=== PATIENT | male | born 2000 | race Caucasian/White ===

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

== ENCOUNTER → 2023-09-02 | Outpatient (CLI) | payer MEDICAID, SELFPAY ==
[2023-09-02 12:19] LABS: Absolute Neutrophil Count 4.2 X10^3/uL (2.0-7.7); Basophil# 0.06 X10^3/uL; Basophil% 0.9 % (0-1); Eosinophil# 0.23 X10^3/uL; Eosinophils% 3.5 % (0-5); Hematocrit 45.4 % (40-54); Hemoglobin 14.3 g/dL (13.0-16.5); Lymphocyte % 25.8 % (19-41); Mean Corp Hgb Conc 31.5 g/dL (32-36); Mean Corpuscular Hgb 25.8 pg (27.0-32.0); Mean Corpuscular Volume 81.9 fL (80-94); Mean Platelet Vol. 9.7 fl (6.2-12.0); Monocyte# 0.43 X10^3/uL; Monocyte% 6.5 % (0-10); NRBC Flagged by Analyzer 0 % (0-5); Neutrophil # 4.17 X10^3/uL (2.7-7.7); Neutrophil % 63.1 % (47-70); Platelet Count 274 K/mm3 (150-450); RBC Distribution Width CV 12.9 % (11.6-14.6); RBC Distribution Width SD 38.7 fl (35.1-43.9); Red Blood Count 5.54 M/mm3 (4.6-6.2); White Blood Count 6.6 K/mm3 (4.4-11.0)
[2023-09-02 12:42] LABS: ALB/GLOB Ratio 0.9 RATIO (0.9-2.4); AST(SGOT) 19 U/L (15-37); Alanine Aminotransfer ALT/SGPT 33 U/L (16-61); Albumin, Serum 3.7 g/dL (3.2-5.0); Alkaline Phosphatase 69 U/L (45-117); Anion Gap 4 (5-15); BUN 9 mg/dL (7-18); BUN/Creat Ratio 11.3 RATIO (10-20); Calcium,Total 9.1 mg/dL (8.5-10.1); Chloride 108 mmol/L (98-107); Cholesterol 109 mg/dL (200); EST Glomerular Filtration Rate 129 mL/min (>60); Est Glom Filt Rate - Afr Amer 156 mL/min (>60); Globulin 4.1 g/dL (2.2-4.2); Glucose 97 mg/dL (74-106); High Density Lipoprotein 45 mg/dL; Potassium 3.9 mmol/L (3.5-5.1); Protein, Total 7.8 g/dL (6.4-8.2); Sodium Level 140 mmol/L (136-145); Triglycerides 43 mg/dL; Very Low Density Lipoprotein 9 mg/dL (5-40)
== END | disposition home or self-care (01) ==
LOC: MFPLAB 10:39
PROVIDERS: PCP Pediatrics; Visit Provider Family Medicine
DX: Z13.1 Encounter for screening for diabetes mellitus (principal); E66.9 Obesity, unspecified
CPT/HCPCS: 36415; 80053; 80061; 85025

== ENCOUNTER → 2024-05-31 | Outpatient (CLI) | payer MEDICAID, SELFPAY ==
--- NOTE | 2024-05-31 10:30 | RAD_ITS ---
INDICATION: pain left hip EXAMINATION/TECHNIQUE: X-RAY - XR Hips Bilateral with Pelvis when performed; Min 5 Views COMPARISON: FINDINGS: PELVIC BONES: No displaced fracture, destructive or sclerotic lesions. Note that overlapping bowel shadows may however obscure fine detail. Screw through the right sacroiliac joint consistent with prior fixation. No widening of the pubic symphysis. HIPS: The articular structures are unremarkable. No displaced fracture seen in this frontal view. SOFT TISSUES: No soft tissue swelling or gas. RAD/Hips B/L min 2 views w/ Pelvis IMPRESSION: No evidence of displaced pelvic or hip fracture. Electronically Signed: Rubin Caldera MD at 11:16 EDT ,
== END | disposition home or self-care (01) ==
PROVIDERS: PCP Family Medicine; Referring Provider Family Medicine; Visit Provider Family Medicine
DX: M25.559 Pain in unspecified hip (principal)
CPT/HCPCS: 73521

== ENCOUNTER → 2025-01-08 | Outpatient (CLI) | payer MEDICAID, SELFPAY ==
--- NOTE | 2025-01-08 12:55 | RAD_ITS ---
PROCEDURE: AP PELVIS AND RIGHT HIP, 2-3 VIEWS REASON FOR EXAM: RIGHT HIP PAIN. TECHNIQUE: AP pelvis and two views of the right hip. COMPARISON: AP pelvis and hips dated 05/31/2024. FINDINGS: No fracture, dislocations, or subluxations. An orthopedic screw is again noted extending through the right iliac wing and sacrum. Compression plate fixing an old fracture of the left hip. No acute or chronic abnormalities demonstrated in the right hip. Soft tissues are unremarkable. RAD/HIP, UNI W/ Pelvis 2-3 Views IMPRESSION: No acute osseous abnormalities are demonstrated. Postoperative findings as detailed above. Reading Location: [facility]
== END | disposition home or self-care (01) ==
PROVIDERS: PCP Family Medicine; Referring Provider Family Medicine; Visit Provider Family Medicine
DX: M25.551 Pain in right hip (principal)
CPT/HCPCS: 73502

== ENCOUNTER 2025-02-15 08:10 | Outpatient (RCR) | payer MEDICAID, SELFPAY ==
[2025-02-15 08:22] VITALS: BP 158/81; PULSE 94; RESP 16; TEMP 36.3; BMI 50.4
--- NOTE | 2025-02-15 10:25 | PCM.WC.HP ---
History of Present Illness Date of Service: 02/15/25 Chief Complaint: cellulitis below the knee amputation site History of Wound: Isaias is a 24 yo gentleman who presents to the wound healing center today regarding drainage at the stump of his left BKA amputation site. He was referred by Dr. Du. He underwent BKA of his left leg 4 years ago due to an injury to his lower left leg. He reports that after initial surgery for BKA he developed infection and had second surgery to revise the stump approx. 1 month after initial amputation but has not had any infections since that time. For the last 2-4 months, he has noted increased pain, burning at the stump site and in the last month he has noted clear drainage which he thought was sweat and about 2 weeks ago he noticed bloody drainage and odor. He saw his PCP on 02/08/25 and was prescribed Clindamycin and referred to wound center for treatment. He did not start antibiotic until Tuesday but has noticed there is no further drainage today since he has been on the antibiotic. He does note that overnight he does seem to develop swelling to his stump area and after being in his prosthesis the swelling has decreased. He has an appointment on Tuesday with [employer] regarding liners for his prosthesis. He did have a compression stocking that he used postoperatively but they no longer provide compression. He is otherwise healthy and not on chronic medications. He denies any systemic symptoms of infection such as fever, chills, malaise. [facility]LY [facility] Medical History Abrasion Home Medications ?Medication ?Instructions ?Recorded ?Last Taken ?Type No Known/Unobtainable [No Known 03/02/14 Unknown History Home Medications] Allergy/AdvReac Type Severity Reaction Status Date / Time bee venom protein (honey bee) AdvReac Intermediate Swelling Verified 02/21/24 10:22 Family History no significant family his no significant family history Surgical History (Updated 02/15/25 @ 15:[address] Sofya Redmond DO) Status post below-knee amputation of left lower extremity Social History Smoking Status: Never smoker ROS Constitutional Constitutional: Denies chills, fatigue or fever(s) Eyes Eyes: Denies blurry vision, change in vision or loss of vision ENT HEENT: Denies dysphagia, hearing loss or sore throat Cardiovascular Cardiovascular: Denies chest pain, edema or palpitations Respiratory/Chest Respiratory/Chest: Denies dry cough, dyspnea, dyspnea on exertion, productive cough or wheezing Gastrointestinal Gastrointestinal: Denies diarrhea, nausea or vomiting Genitourinary Genitourinary: Denies dysuria or polyuria Musculoskeletal Musculoskeletal: Denies arthralgias, joint stiffness or muscle weakness Integumentary Integumentary: Reports erythema and wounds Neurologic Neurologic: Denies dizziness, memory loss or weakness Psychiatric Psychiatric: Denies homicidal ideation or suicidal ideation Endocrine Endocrinology: Denies polydipsia, polyphagia or polyuria Hematologic/Lymphatic Hematologic/Lymphatic: Denies easy bleeding or easy bruising Allergic/Immunologic Allergic/Immunologic: Denies throat swelling, tongue swelling or urticaria Vital Signs Vital Signs Vital Signs: 02/15/25 08:22 Temperature 97.3 F L Temperature Source Temporal Pulse Rate 94 Respiratory Rate 16 Blood Pressure 158/81 H Blood Pressure Mean 106 Blood Pressure Source Monitor Blood Pressure Position Semi-Fowlers Blood Pressure Location Left Arm Oxygen Delivery Method Room Air Weight Weight: 178.262 kg Body Mass Index (BMI) 50.4 Physical Exam Const alert, oriented x3 and no apparent distress General Appearance: cooperative and comfortable HEENT normocephalic and head/scalp atraumatic Resp normal respiratory effort Effort and Inspection: able to speak in complete sentences Cardio regular rate and regular rhythm Skin Wounds: wounds noted Wound Narrative: as in clinical panel - left BKA amputation site with nodular appearance associated with chronic edema without open ulcer Psych mental status grossly normal, thought process normal, cooperative and affect normal Debridement Note Debridement Note Wound debrided: left BKA amputation stump Laterality: Left Post-Debridement Measurements and Additional Note: Post-Debridement Measurements/Treatment - Nurse 1 - General Ulcer Assessment Start: 02/15/25 08:22 Freq: Status: Active Protocol: DARRIUS Activity Type Activity Date Activity User E-sign Co-sign Detail Recorded Client Recorded Date Recorded By Document 02/15/25 08:22 TIFF [id number] 02/15/25 08:31 KW 02/15/25 08:22 - Today's Visit Information Type of service Initial Visit Arrival Mode Ambulatory Patient Identification Verified (Name & Yes ) Height and Weight Height 6 ft 2 in Weight 178.262 kg Weight in Pounds 393.0 lbs Weight Measurement Method Estimated by Patient Body Mass Index (BMI) 50.4 BMI Classification Obese Vital Signs Temperature (97.8 F-99.1 F) 97.3 F L Temperature Source Temporal Pulse Rate (60-100) 94 Pulse Location Monitor Respiratory Rate (12-18) 16 Respiratory rate source Observation Oxygen Delivery Method Room Air Blood Pressure (90/60-120/80) 158/81 H Blood Pressure Mean 106 Source Monitor Position Semi-Fowlers Blood Pressure Location Left Arm History Since Last Visit- (Skip if this is Patient's initial visit) Left Footwear Regular Shoe Right Footwear Regular Shoe Pain Scale: 0-10 Numeric Is Patient Pain Free? Yes Communication Assessment Preferred language [employer] Reset Required No Able to Read Yes Able to Write Yes Communication Tools None Caregiver Communication Skills No Impairment Impairment Right Hearing Abillity Normal Left Hearing Abillity Normal Visual Assistive Devices None WC - Nurse 1 - General Ulcer Measurement Start: 02/15/25 08:22 Freq: Status: Active Protocol: Activity Type Activity Date Activity User E-sign Co-sign Detail Recorded Client Recorded Date Recorded By Document 02/15/25 08:22 [id number] 02/15/25 08:31 KW 02/15/25 08:22 Wound Center Nurse 1 #1 LT STUMP -Current Size (cm) - Length 0.1 -Current Size (cm) - Width 0.1 -Current Size (cm) - Depth 0 -Total Square Cm 0.01 -Date of Last Picture (Recall this 02/15/25 field) -Exudate Amt Small -Exudate Type Serosanguineous -Wound Margin Distinct, Outline Attached -Granulation Amt Large (67-100%) -Granulation Quality Red -Texture (Luz Marina-wound Skin Appearance) Assessed -Moisture (Luz Marina-wound Skin Appearance) Assessed -Color (Luz Marina-wound Skin Appearance) Assessed, Erythema -Temperature (Luz Marina-wound Skin No Abnormality Appearance) (Pt Warm) -Tenderness on Palpation (Luz Mraina-wound No Skin Appearance) -Ulcer Cleansing Rinsed/ Irrigated with Saline -Foul Odor after Cleansing No -Anesthetic Used 5% Lidocaine Gel WC - Nurse 2 - General Ulcer CM Notes Start: 02/15/25 08:22 Freq: Status: Active Protocol: Activity Type Activity Date Activity User E-sign Co-sign Detail Recorded Client Recorded Date Recorded By Document 02/15/25 09:02 DS [id number] 02/15/25 09:03 DS 02/15/25 09:02 Wound Center Nurse 2 -Time 09:02 -Correct Patient Yes -Correct Side, Site, Position Yes -Procedure Performed No -Wound/Ulcer Outcome Amputation -Wound Comment(s) NO OPEN AREA Pain Scale: 0-10 Numeric Is Patient Pain Free? Yes WC - Nurse 3 - General Ulcer D/C NN Start: 02/15/25 08:22 Freq: Status: Active Protocol: Activity Type Activity Date Activity User E-sign Co-sign Detail Recorded Client Recorded Date Recorded By Document 02/15/25 09:16 RB [id number] 02/15/25 09:18 RB 02/15/25 09:16 Wound Care Center Nurse 3 LLE -Tubular Bandage Single Layer -Size of Tubigrip Used Size F -Size F ($) 1 Treatment Response Procedure Tolerated Well Pain Scale: 0-10 Numeric Is Patient Pain Free? Yes WC - Visit Discharge Discharge Condition Stable Ambulatory Status Ambulatory Transportation Private Auto Medication Reconcilliation completed & No provided to patient/care provider Clinical Summary of Care Provided Yes Notes: LLE PROSTETIC Assessment/Plan Assessment/Plan (1) Status post below-knee amputation of left lower extremity: CODE(S): Z89.512 - Acquired absence of left leg below knee (2) Complication of amputation stump of left lower extremity: CODE(S): T87.9 - Unspecified complications of amputation stump (3) Body mass index (BMI) of 40.0 to 44.9 in adult: CODE(S): Z68.41 - Body mass index [BMI] 40.0-44.9, adult (4) Lymphedema: CODE(S): I89.0 - Lymphedema, not elsewhere classified (5) Cellulitis and abscess of left lower extremity: CODE(S): L03.116 - Cellulitis of left lower limb; L02.416 - Cutaneous abscess of left lower limb (6) Complete traumatic amputation at level between knee and ankle, left lower leg, sequela: CODE(S): S88.112S - Complete traumatic amputation at level between knee and ankle, left lower leg, sequela PLAN: Plan Left BKA stump evaluated today revealing chronic skin changes of lymphedema and possibly pressure with nodular appearance and mild cellulitis without any visible ulceration. At home wound-care instructions: The patient will wash with antibacterial soap and water and then will apply gauze or ABD to stump site. Keep dressing clean and dry. Will try to offload stump site as much as possible. Will apply tubigrip compression today to the stump site and have him use this especially at night when he states that he experiences swelling. Also, encouraged him to discuss this at his appointment with [employer] as they may have suggestions for liners or sleeves to prevent edema. There is a possibility that if he develops ulcers or continues to have chronic cellulitis that a revision of the stump site may be necessary. Off-loading: The patient was instructed to avoid pressure and friction on the affected areas. Reposition every 2 hours at minimum. Avoid prolonged standing and/or dangling of legs. When seated, feet should be elevated at chest level. Frequent ambulation is encouraged. Diet: Patient encouraged to increase protein intake while taking caution to avoid high carbohydrate and/or sugar intake. Labs/cultures/imaging: None. he will complete antibiotic treatment. Follow-up: Return in 1 week for wound care follow up. Return sooner or report to the emergency room should symptoms worsen, or new symptoms arise. Note: [employer] speech recognition glove machine operator software was used to create portions of this document. Sound-alike and misspelled words, as well as other glove machine operator errors may be contained in the documentation.
--- NOTE | 2025-02-15 12:20 | WC ---
PHOTO 02/15/25 LEFT STUMP
== END 2025-02-18 23:59 | disposition home or self-care (01) ==
LOC: WC 08:10
PROVIDERS: PCP Family Medicine; Referring Provider Family Medicine; Visit Provider Family Medicine
DX: T87.44 Infection of amputation stump, left lower extremity (principal); Z89.512 Acquired absence of left leg below knee; Z68.41 Body mass index [BMI] 40.0-44.9, adult; L02.416 Cutaneous abscess of left lower limb; L03.116 Cellulitis of left lower limb; S88.112S Complete traumatic amputation at level between knee and ankle, left lower leg, sequela; X58.XXXS Exposure to other specified factors, sequela; I89.0 Lymphedema, not elsewhere classified; Z79.899 Other long term (current) drug therapy
CPT/HCPCS: 99213; G0463

== ENCOUNTER 2025-03-08 08:30 | Outpatient (RCR) | payer MEDICAID, SELFPAY ==
[2025-02-19 01:00] VITALS: BP 158/81; PULSE 94; RESP 16; TEMP 36.3; BMI 50.4
[2025-02-22 08:22] VITALS: BP 138/72; PULSE 73; RESP 18; TEMP 36.1; BMI 50.4
--- NOTE | 2025-02-22 12:58 | PN.PCM_ITS ---
History of Present Illness Date of Service: 02/22/25 Chief Complaint: cellulitis below the knee amputation site History of Wound: Isaias is a 24 yo gentleman who presents to the wound healing center today regarding drainage at the stump of his left BKA amputation site. He was referred by Dr. Du. He underwent BKA of his left leg 4 years ago due to an injury to his lower left leg. He reports that after initial surgery for BKA he developed infection and had second surgery to revise the stump approx. 1 month after initial amputation but has not had any infections since that time. For the last 2-4 months, he has noted increased pain, burning at the stump site and in the last month he has noted clear drainage which he thought was sweat and about 2 weeks ago he noticed bloody drainage and odor. He saw his PCP on 02/08/25 and was prescribed Clindamycin and referred to wound center for treatment. He did not start antibiotic until Tuesday but has noticed there is no further drainage today since he has been on the antibiotic. He does note that overnight he does seem to develop swelling to his stump area and after being in his prosthesis the swelling has decreased. He has an appointment on Tuesday with [employer] regarding liners for his prosthesis. He did have a compression stocking that he used postoperatively but they no longer provide compression. He is otherwise healthy and not on chronic medications. He denies any systemic symptoms of infection such as fever, chills, malaise. Subjective Subjective Isaias returns to the wound center today for evaluation and treatment of drainage at left BKA stump site. He completed Clindamycin and a few days later he began to have drainage, blood at his stump site again. The tubigrip compression was not helpful and irritated his skin but the heat transfer technician that he saw yvonne Castro is going to add a cushion at the site of where his pin is on his prosthesis to offload the stump site better. He denies increased erythema, fever or chills. Drainage is moderate to heavy. Objective Data Objective Data Vital Signs: Vital Signs Temp Pulse Resp BP 97 F L 73 18 138/72 H 02/22/25 08:22 02/22/25 08:22 02/22/25 08:22 02/22/25 08:22 Weight: 178.262 kg Body Mass Index (BMI) 50.4 Physical Exam Const alert, oriented x3 and no apparent distress General Appearance: cooperative and comfortable HEENT normocephalic and head/scalp atraumatic Resp normal respiratory effort Effort and Inspection: able to speak in complete sentences Cardio regular rate and regular rhythm Skin Wounds: wounds noted Wound Narrative: as in clinical panel - left BKA amputation site with nodular appearance associated with chronic edema without open ulcer Psych mental status grossly normal, thought process normal, cooperative and affect normal Debridement Note Debridement Note Wound debrided: left BKA stump Laterality: Left No debridement was completed: No debridement was completed today (no ulcer present) Post-Debridement Measurements and Additional Note: Post-Debridement Measurements/Treatment CHERYL - Nurse 1 - General Ulcer Assessment Start: 02/22/25 08:22 Freq: Status: Active Protocol: DARRIUS Activity Type Activity Date Activity User E-sign Co-sign Detail Recorded Client Recorded Date Recorded By Document 02/22/25 08:22 TIFF [id number] 02/22/25 08:26 TIFF 02/22/25 08:22 WC - Today's Visit Information Type of service Follow-up Visit (Physician/GRADER OPERATOR ) Arrival Mode Ambulatory Patient Identification Verified (Name & Yes ) Height and Weight Body Mass Index (BMI) 50.4 BMI Classification Obese Vital Signs Temperature (97.8 F-99.1 F) 97 F L Temperature Source Temporal Pulse Rate (60-100) 73 Pulse Location Monitor Respiratory Rate (12-18) 18 Respiratory rate source Observation Blood Pressure (90/60-120/80) 138/72 H Blood Pressure Mean (mm Hg) 94 Source Monitor Position Semi-Fowlers Blood Pressure Location Left Arm History Since Last Visit- (Skip if this is Patient's initial visit) Have you changed medications since your No last visit? Any new allergies or adverse reactions No Had a fall/change in ADL's that may No increase risk of falls Signs or symptoms of abuse and/or No neglect since last visit Have you been in the hospital since your No last visit? Has dressing in place as prescribed Yes Has compression in place as prescribed N/A Has offloadiing in place as prescribed N/A Experienced any changes in pain level or No management Left Footwear No Footwear Right Footwear Regular Shoe Pain Scale: 0-10 Numeric Is Patient Pain Free? Yes CHERYL - Nurse 1 - General Ulcer Measurement Start: 02/22/25 08:22 Freq: Status: Active Protocol: Activity Type Activity Date Activity User E-sign Co-sign Detail Recorded Client Recorded Date Recorded By Document 02/22/25 08:22 KW [id number] 02/22/25 08:26 KW 02/22/25 08:22 Wound Center Nurse 1 #1 LT STUMP -Combined with other wound No -Current Size (cm) - Length 0.1 -Current Size (cm) - Width 0.1 -Current Size (cm) - Depth 0.1 -Total Square Cm 0.01 -Photo Taken Yes -Tunneling No -Undermining/Tunneling No -Circular Undermining No -Exudate Amt None Present -Wound Margin Distinct, Outline Attached -Granulation Amt Large (67-100%) -Granulation Quality Taylor -Slough/Fibrin No -Structure Exposed N/A -Texture (Luz Marina-wound Skin Appearance) Excoriation -Moisture (Luz Marina-wound Skin Appearance) Assessed -Color (Luz Marina-wound Skin Appearance) Erythema -Temperature (Luz Marina-wound Skin No Abnormality Appearance) (Pt Warm) -Tenderness on Palpation (Luz Marina-wound No Skin Appearance) -Ulcer Cleansing Wound Cleanser -Foul Odor after Cleansing No WC - Nurse 2 - General Ulcer CM Notes Start: 02/22/25 08:22 Freq: Status: Active Protocol: Activity Type Activity Date Activity User E-sign Co-sign Detail Recorded Client Recorded Date Recorded By Document 02/22/25 08:40 DS [id number] 02/22/25 08:44 DS 02/22/25 08:40 Wound Center Nurse 2 -Time 08:40 -Correct Patient Yes -Correct Side, Site, Position Yes -Procedure Performed No Pain Scale: 0-10 Numeric Is Patient Pain Free? Yes - Nurse 3 - General Ulcer D/C NN Start: 02/22/25 08:22 Freq: Status: Active Protocol: Activity Type Activity Date Activity User E-sign Co-sign Detail Recorded Client Recorded Date Recorded By Document 02/22/25 08:54 KW [id number] 02/22/25 08:54 02/22/25 08:54 Wound Care Center Nurse 3 #1 LT STUMP -Primary Dressing Covered/Secured with Dry Gauze Pain Scale: 0-10 Numeric Is Patient Pain Free? Yes WC - Visit Discharge Discharge Condition Stable Ambulatory Status Ambulatory Transportation Private Auto Medication Reconcilliation completed & No provided to patient/care provider Clinical Summary of Care Provided Yes Assessment/Plan Assessment/Plan (1) Status post below-knee amputation of left lower extremity: CODE(S): Z89.512 - Acquired absence of left leg below knee (2) Complication of amputation stump of left lower extremity: CODE(S): T87.9 - Unspecified complications of amputation stump (3) Body mass index (BMI) of 40.0 to 44.9 in adult: CODE(S): Z68.41 - Body mass index [BMI] 40.0-44.9, adult (4) Lymphedema: CODE(S): I89.0 - Lymphedema, not elsewhere classified (5) Cellulitis and abscess of left lower extremity: CODE(S): L03.116 - Cellulitis of left lower limb; L02.416 - Cutaneous abscess of left lower limb (6) Complete traumatic amputation at level between knee and ankle, left lower leg, sequela: CODE(S): S88.112S - Complete traumatic amputation at level between knee and ankle, left lower leg, sequela PLAN: Plan Left BKA stump evaluated today revealing chronic skin changes of lymphedema and possibly pressure with nodular appearance and mild cellulitis without any visible ulceration. At home wound-care instructions: The patient will wash with antibacterial soap and water and then will apply ABD to stump site daily. Keep dressing clean and dry. Will try to offload stump site as much as possible. There is a possibility that if he develops ulcers or continues to have chronic cellulitis that a revision of the stump site may be necessary. Off-loading: The patient was instructed to avoid pressure and friction on the affected areas. Reposition every 2 hours at minimum. Avoid prolonged standing and/or dangling of legs. When seated, feet should be elevated at chest level. Frequent ambulation is encouraged. Diet: Patient encouraged to increase protein intake while taking caution to avoid high carbohydrate and/or sugar intake. Labs/cultures/imaging: Wound culture taken today. Will treat based on results. Follow-up: Return in 1 week for wound care follow up. Return sooner or report to the emergency room should symptoms worsen, or new symptoms arise. Note: [employer] speech recognition senior formulation scientist software was used to create portions of this document. Sound-alike and misspelled words, as well as other senior formulation scientist errors may be contained in the documentation.
--- NOTE | 2025-02-25 08:18 | WC ---
PHOTO 02/22/25 LEFT STUMP
[2025-03-08 08:34] VITALS: BP 139/72; PULSE 79; RESP 18; TEMP 36.1; BMI 50.4
--- NOTE | 2025-03-08 09:11 | PN.PCM_ITS ---
History of Present Illness Date of Service: 03/08/25 Chief Complaint: cellulitis below the knee amputation site History of Wound: Isaias is a 24 yo gentleman who presents to the wound healing center today regarding drainage at the stump of his left BKA amputation site. He was referred by Dr. Du. He underwent BKA of his left leg 4 years ago due to an injury to his lower left leg. He reports that after initial surgery for BKA he developed infection and had second surgery to revise the stump approx. 1 month after initial amputation but has not had any infections since that time. For the last 2-4 months, he has noted increased pain, burning at the stump site and in the last month he has noted clear drainage which he thought was sweat and about 2 weeks ago he noticed bloody drainage and odor. He saw his PCP on 02/08/25 and was prescribed Clindamycin and referred to wound center for treatment. He did not start antibiotic until Tuesday but has noticed there is no further drainage today since he has been on the antibiotic. He does note that overnight he does seem to develop swelling to his stump area and after being in his prosthesis the swelling has decreased. He has an appointment on Tuesday with [employer] regarding liners for his prosthesis. He did have a compression stocking that he used postoperatively but they no longer provide compression. He is otherwise healthy and not on chronic medications. He denies any systemic symptoms of infection such as fever, chills, malaise. Subjective Subjective Isaias returns to the wound center today for evaluation and treatment of drainage at left BKA stump site. He continues to have drainage off and on but it has been better than previous. The racking technician that he saw from [employer] is going to add a cushion at the site of where his pin is on his prosthesis to offload the stump site better. He also has a shrinking sleeve that he is using at bedtime. He denies increased erythema, fever or chills. Drainage is moderate to heavy. Objective Data Objective Data Vital Signs: Vital Signs Temp Pulse Resp BP 97 F L 79 18 139/72 H 03/08/25 08:34 03/08/25 08:34 03/08/25 08:34 03/08/25 08:34 Weight: 178.262 kg Body Mass Index (BMI) 50.4 Lab / Micro Data Micro: Microbiology 02/22/25 08:43 Wound - Leg, Left Gram Stain - Final 02/22/25 08:43 Wound - Leg, Left Wound Culture - Final Corynebacterium minutissimum Corynebacterium amycolatum 02/22/25 08:43 Wound - Leg, Left Anaerobic Culture - Final Anaerobic cocci Prevotella oralis Physical Exam Const alert, oriented x3 and no apparent distress General Appearance: cooperative and comfortable HEENT normocephalic and head/scalp atraumatic Resp normal respiratory effort Effort and Inspection: able to speak in complete sentences Cardio regular rate and regular rhythm Skin Wounds: wounds noted Wound Narrative: as in clinical panel - left BKA amputation site with nodular appearance associated with chronic edema without open ulcer Psych mental status grossly normal, thought process normal, cooperative and affect normal Debridement Note Debridement Note Wound debrided: Left BKA stump Laterality: Left No debridement was completed: No debridement was completed today Post-Debridement Measurements and Additional Note: Post-Debridement Measurements/Treatment - Nurse 1 - General Ulcer Assessment Start: 02/22/25 08:22 Freq: Status: Active Protocol: DARRIUS Activity Type Activity Date Activity User E-sign Co-sign Detail Recorded Client Recorded Date Recorded By Document 02/22/25 08:22 KW [id number] 02/22/25 08:26 KW Document 03/08/25 08:34 ML [id number] 03/08/25 08:36 ML 02/22/25 03/08/25 08:22 08:34 - Today's Visit Information Type of service Follow-up Visit Follow-up Visit (Physician/MERCHANDISE ASSOCIATE (Physician/MERCHANDISE ASSOCIATE ) ) Arrival Mode Ambulatory Ambulatory Transfer Assistance None Patient Identification Verified (Name & Yes Yes ) Patient Requires Transmission-Based No Precautions Height and Weight Body Mass Index (BMI) 50.4 50.4 BMI Classification Obese Obese Vital Signs Temperature (97.8 F-99.1 F) 97 F L 97 F L Temperature Source Temporal Temporal Pulse Rate (60-100) 73 79 Pulse Location Monitor Monitor Respiratory Rate (12-18) 18 18 Respiratory rate source Observation Observation Blood Pressure (90/60-120/80) 138/72 H 139/72 H Blood Pressure Mean (mm Hg) 94 94 Source Monitor Monitor Position Semi-Fowlers Semi-Fowlers Blood Pressure Location Left Arm Left Arm History Since Last Visit- (Skip if this is Patient's initial visit) Have you changed medications since your No No last visit? Any new allergies or adverse reactions No No Had a fall/change in ADL's that may No No increase risk of falls Signs or symptoms of abuse and/or No No neglect since last visit Have you been in the hospital since your No No last visit? Has dressing in place as prescribed Yes Yes Has compression in place as prescribed N/A Yes Has offloadiing in place as prescribed N/A N/A Experienced any changes in pain level or No No management Left Footwear No Footwear No Footwear Right Footwear Regular Shoe Regular Shoe Pain Scale: 0-10 Numeric Is Patient Pain Free? Yes Yes WC - Nurse 1 - General Ulcer Measurement Start: 02/22/25 08:22 Freq: Status: Active Protocol: Activity Type Activity Date Activity User E-sign Co-sign Detail Recorded Client Recorded Date Recorded By Document 02/22/25 08:22 KW [id number] 02/22/25 08:26 KW Document 03/08/25 08:34 ML [id number] 03/08/25 08:36 ML 02/22/25 03/08/25 08:22 08:34 Wound Center Nurse 1 #1 LT STUMP -Combined with other wound No No -Current Size (cm) - Length 0.1 0.1 -Current Size (cm) - Width 0.1 0.1 -Current Size (cm) - Depth 0.1 0.1 -Total Square Cm 0.01 0.01 -Photo Taken Yes Yes -Tunneling No No -Undermining/Tunneling No No -Circular Undermining No No -Exudate Amt None Present Large -Exudate Type Serosanguineous -Wound Margin Distinct, Distinct, Outline Outline Attached Attached -Granulation Amt Large (67-100%) Medium (34-66%) -Granulation Quality [place] -Slough/Fibrin No Yes -Necrosis Amt Small (1-33%) -Necrotic Tissue Type Adherent Slough -Structure Exposed N/A N/A -Texture (Luz Marina-wound Skin Appearance) Excoriation Assessed -Moisture (Luz Marina-wound Skin Appearance) Assessed Assessed -Color (Luz Marina-wound Skin Appearance) Erythema Assessed -Temperature (Luz Marina-wound Skin No Abnormality No Abnormality Appearance) (Pt Warm) (Pt Warm) -Tenderness on Palpation (Luz Marina-wound No No Skin Appearance) -Ulcer Cleansing Wound Cleanser Wound Cleanser -Foul Odor after Cleansing No No -Anesthetic Used 5% Lidocaine Gel - Nurse 2 - General Ulcer CM Notes Start: 02/22/25 08:22 Freq: Status: Active Protocol: Activity Type Activity Date Activity User E-sign Co-sign Detail Recorded Client Recorded Date Recorded By Document 02/22/25 08:40 DS [id number] 02/22/25 08:44 DS Document 03/08/25 08:54 GM [id number] 03/08/25 08:55 02/22/25 03/08/25 08:40 08:54 Wound Center Nurse 2 #1 LT STUMP -Time 08:40 08:54 -Correct Patient Yes Yes -Correct Side, Site, Position Yes Yes -Correct Procedure No -Procedure Performed No No -Tunneling No -Undermining/Tunneling No -Circular Undermining No -Wound/Ulcer Outcome Not Healed -Foul Odor after Cleansing No -Bioengineered Tissue No -Bleeding Controlled with NA Pain Scale: 0-10 Numeric Is Patient Pain Free? Yes Yes - Nurse 3 - General Ulcer D/C NN Start: 02/22/25 08:22 Freq: Status: Active Protocol: Activity Type Activity Date Activity User E-sign Co-sign Detail Recorded Client Recorded Date Recorded By Document 02/22/25 08:54 KW [id number] 02/22/25 08:54 KW Document 03/08/25 08:59 [id number] 03/08/25 08:59 02/22/25 03/08/25 08:54 08:59 Wound Care Center Nurse 3 #1 LT STUMP -Ulcer Cleansing Not Cleansed -Foul Odor after Cleansing No -Negative Pressure Wound Therapy N/A -Primary Dressing Covered/Secured with Dry Gauze -Wound Comment(s) pads irritate his stump, doesn't need anything unless there is drainage Pain Scale: 0-10 Numeric Is Patient Pain Free? Yes Yes - Visit Discharge Discharge Condition Stable Stable Ambulatory Status Ambulatory Ambulatory Transportation Private Auto Private Auto Medication Reconcilliation completed & No provided to patient/care provider Clinical Summary of Care Provided Yes Yes Assessment/Plan Assessment/Plan (1) Status post below-knee amputation of left lower extremity: CODE(S): Z89.512 - Acquired absence of left leg below knee (2) Complication of amputation stump of left lower extremity: CODE(S): T87.9 - Unspecified complications of amputation stump (3) Body mass index (BMI) of 40.0 to 44.9 in adult: CODE(S): Z68.41 - Body mass index [BMI] 40.0-44.9, adult (4) Lymphedema: CODE(S): I89.0 - Lymphedema, not elsewhere classified (5) Cellulitis and abscess of left lower extremity: CODE(S): L03.116 - Cellulitis of left lower limb; L02.416 - Cutaneous abscess of left lower limb (6) Complete traumatic amputation at level between knee and ankle, left lower leg, sequela: CODE(S): S88.112S - Complete traumatic amputation at level between knee and ankle, left lower leg, sequela PLAN: Plan Left BKA stump evaluated today revealing chronic skin changes of lymphedema and possibly pressure with nodular appearance and mild cellulitis without any visible ulceration. At home wound-care instructions: The patient will wash with antibacterial soap and water and then will apply gauze to stump site daily as needed. Apply Clindamycin to area at top ofsite and triamcinolone to area at bottom once daily. Keep dressing clean and dry. Will try to offload stump site as much as possible. There is a possibility that if he develops ulcers or continues to have chronic cellulitis that a revision of the stump site may be necessary. Off-loading: The patient was instructed to avoid pressure and friction on the affected areas. Reposition every 2 hours at minimum. Avoid prolonged standing and/or dangling of legs. When seated, feet should be elevated at chest level. Frequent ambulation is encouraged. Diet: Patient encouraged to increase protein intake while taking caution to avoid high carbohydrate and/or sugar intake. Labs/cultures/imaging: Wound culture taken today. Will treat based on results. Follow-up: Return in 1 week for wound care follow up. Return sooner or report to the emergency room should symptoms worsen, or new symptoms arise. Note: [employer] speech recognition electric motor control assembler software was used to create portions of this document. Sound-alike and misspelled words, as well as other electric motor control assembler errors may be contained in the documentation.
--- NOTE | 2025-03-11 13:10 | WC ---
PHOTO 03/11/25 LEFT STUMP
== END 2025-03-20 23:59 | disposition home or self-care (01) ==
LOC: WC 08:30
PROVIDERS: PCP Family Medicine; Referring Provider Family Medicine; Visit Provider Family Medicine
DX: T87.44 Infection of amputation stump, left lower extremity (principal); Z89.512 Acquired absence of left leg below knee; Z68.43 Body mass index [BMI] 50.0-59.9, adult; L03.116 Cellulitis of left lower limb; S88.112S Complete traumatic amputation at level between knee and ankle, left lower leg, sequela; X58.XXXS Exposure to other specified factors, sequela; I89.0 Lymphedema, not elsewhere classified; Z79.899 Other long term (current) drug therapy
CPT/HCPCS: 87070; 87075; 87077; 87205; 99213; G0463

== ENCOUNTER 2025-04-12 08:30 | Outpatient (RCR) | payer MEDICAID, SELFPAY ==
[2025-03-21 00:20] VITALS: BP 139/72; PULSE 79; RESP 18; TEMP 36.1; BMI 50.4
[2025-03-29 08:05] VITALS: BP 149/80; PULSE 72; RESP 16; TEMP 36.5; BMI 50.4
--- NOTE | 2025-03-29 08:56 | PCM.WC.PN ---
History of Present Illness Date of Service: 03/29/25 Chief Complaint: cellulitis below the knee amputation site History of Wound: Isaias is a 24 yo gentleman who presents to the wound healing center today regarding drainage at the stump of his left BKA amputation site. He was referred by Dr. Du. He underwent BKA of his left leg 4 years ago due to an injury to his lower left leg. He reports that after initial surgery for BKA he developed infection and had second surgery to revise the stump approx. 1 month after initial amputation but has not had any infections since that time. For the last 2-4 months, he has noted increased pain, burning at the stump site and in the last month he has noted clear drainage which he thought was sweat and about 2 weeks ago he noticed bloody drainage and odor. He saw his PCP on 02/08/25 and was prescribed Clindamycin and referred to wound center for treatment. He did not start antibiotic until Tuesday but has noticed there is no further drainage today since he has been on the antibiotic. He does note that overnight he does seem to develop swelling to his stump area and after being in his prosthesis the swelling has decreased. He has an appointment on Tuesday with [employer] regarding liners for his prosthesis. He did have a compression stocking that he used postoperatively but they no longer provide compression. He is otherwise healthy and not on chronic medications. He denies any systemic symptoms of infection such as fever, chills, malaise. Subjective Subjective Isaias returns to the wound center today for evaluation and treatment of drainage at left BKA stump site. He continues to have drainage off and on. The environmental technician that he saw from [employer] is going to add a cushion at the site of where his pin is on his prosthesis to offload the stump site better. He also has a shrinking sleeve that he is using at bedtime. He denies increased erythema, fever or chills. Drainage is moderate to heavy. Objective Data Objective Data Vital Signs: Vital Signs Temp Pulse Resp BP O2 Del Method 97.7 F L 72 16 149/80 H Room Air 03/29/25 08:05 03/29/25 08:05 03/29/25 08:05 03/29/25 08:05 03/29/25 08:05 Oxygen Delivery Method Room Air Weight: 178.262 kg Body Mass Index (BMI) 50.4 Physical Exam Const alert, oriented x3 and no apparent distress General Appearance: cooperative and comfortable HEENT normocephalic and head/scalp atraumatic Resp normal respiratory effort Effort and Inspection: able to speak in complete sentences Cardio regular rate and regular rhythm Skin Wounds: wounds noted Wound Narrative: as in clinical panel - left BKA amputation site with nodular appearance associated with chronic edema without open ulcer Psych mental status grossly normal, thought process normal, cooperative and affect normal Debridement Note Debridement Note Wound debrided: left BKA stump Laterality: Left No debridement was completed: No debridement was completed today (no ulcer noted) Post-Debridement Measurements and Additional Note: Post-Debridement Measurements/Treatment CHERYL - Nurse 1 - General Ulcer Assessment Start: 03/29/25 08:05 Freq: Status: Active Protocol: DARRIUS Activity Type Activity Date Activity User E-sign Co-sign Detail Recorded Client Recorded Date Recorded By Document 03/29/25 08:05 TIFF [id number] 03/29/25 08:17 TIFF 03/29/25 08:05 WC - Today's Visit Information Type of service Follow-up Visit (Physician/LEGUILLON DEBEADER ) Arrival Mode Ambulatory Patient Identification Verified (Name & Yes ) Height and Weight Body Mass Index (BMI) 50.4 BMI Classification Obese Vital Signs Temperature (97.8 F-99.1 F) 97.7 F L Temperature Source Temporal Pulse Rate (60-100) 72 Pulse Location Monitor Respiratory Rate (12-18) 16 Respiratory rate source Observation Oxygen Delivery Method Room Air Blood Pressure (90/60-120/80) 149/80 H Blood Pressure Mean (mm Hg) 103 Source Monitor Position Semi-Fowlers Blood Pressure Location Right Arm History Since Last Visit- (Skip if this is Patient's initial visit) Have you changed medications since your No last visit? Any new allergies or adverse reactions No Had a fall/change in ADL's that may No increase risk of falls Signs or symptoms of abuse and/or No neglect since last visit Have you been in the hospital since your No last visit? Has dressing in place as prescribed Yes Has compression in place as prescribed Yes Has offloadiing in place as prescribed N/A Experienced any changes in pain level or No management Left Footwear Regular Shoe Right Footwear Regular Shoe Pain Scale: 0-10 Numeric Is Patient Pain Free? Yes CHERYL - Nurse 1 - General Ulcer Measurement Start: 03/29/25 08:05 Freq: Status: Active Protocol: Activity Type Activity Date Activity User E-sign Co-sign Detail Recorded Client Recorded Date Recorded By Document 03/29/25 08:05 [id number] 03/29/25 08:17 03/29/25 08:05 Wound Center Nurse 1 #1 LT STUMP -Current Size (cm) - Length 0.1 -Current Size (cm) - Width 0.1 -Current Size (cm) - Depth 0 -Total Square Cm 0.01 -Exudate Amt Medium -Exudate Type Serosanguineous -Wound Margin Indistinct, Non -Visible -Granulation Amt Large (67-100%) -Granulation Quality Red -Texture (Luz Marina-wound Skin Appearance) Assessed -Moisture (Luz Marina-wound Skin Appearance) Assessed -Color (Luz Marina-wound Skin Appearance) Assessed, Erythema -Temperature (Luz Marina-wound Skin No Abnormality Appearance) (Pt Warm) -Tenderness on Palpation (Luz Marina-wound No Skin Appearance) -Ulcer Cleansing Rinsed/ Irrigated with Saline -Foul Odor after Cleansing No WC - Nurse 2 - General Ulcer CM Notes Start: 03/29/25 08:05 Freq: Status: Active Protocol: Activity Type Activity Date Activity User E-sign Co-sign Detail Recorded Client Recorded Date Recorded By Document 03/29/25 08:43 [id number] 03/29/25 08:51 03/29/25 08:43 Wound Center Nurse 2 -Time 08:44 -Correct Patient Yes -Correct Side, Site, Position Yes -Correct Procedure No -Procedure Performed No -Post Debridement (cm) - Length 0.1 -Post Debridement (cm) - Width 0.1 -Post Debridement (cm) - Depth 0.1 -Total Square (Post) (cm) 0.01 -Tunneling No -Undermining/Tunneling No -Circular Undermining No -Wound/Ulcer Outcome Not Healed -Ulcer Cleansing Rinsed/ Irrigated with Saline -Foul Odor after Cleansing No -Bioengineered Tissue No -Bleeding Controlled with NA Pain Scale: 0-10 Numeric Is Patient Pain Free? Yes WC - Nurse 3 - General Ulcer D/C NN Start: 03/29/25 08:05 Freq: Status: Active Protocol: Activity Type Activity Date Activity User E-sign Co-sign Detail Recorded Client Recorded Date Recorded By Document 03/29/25 08:55 [id number] 03/29/25 08:55 03/29/25 08:55 Wound Care Center Nurse 3 #1 LT STUMP -Ulcer Cleansing Not Cleansed -Foul Odor after Cleansing No -Primary Dressing Covered/Secured with Dry Gauze Pain Scale: 0-10 Numeric Is Patient Pain Free? Yes WC - Visit Discharge Discharge Condition Stable Ambulatory Status Ambulatory Transportation Private Auto Clinical Summary of Care Provided Yes Assessment/Plan Assessment/Plan (1) Status post below-knee amputation of left lower extremity: CODE(S): Z89.512 - Acquired absence of left leg below knee (2) Complication of amputation stump of left lower extremity: CODE(S): T87.9 - Unspecified complications of amputation stump (3) Body mass index (BMI) of 40.0 to 44.9 in adult: CODE(S): Z68.41 - Body mass index [BMI] 40.0-44.9, adult (4) Lymphedema: CODE(S): I89.0 - Lymphedema, not elsewhere classified (5) Cellulitis and abscess of left lower extremity: CODE(S): L03.116 - Cellulitis of left lower limb; L02.416 - Cutaneous abscess of left lower limb (6) Complete traumatic amputation at level between knee and ankle, left lower leg, sequela: CODE(S): S88.112S - Complete traumatic amputation at level between knee and ankle, left lower leg, sequela PLAN: Plan Left BKA stump evaluated today revealing chronic skin changes of lymphedema and possibly pressure with nodular appearance and mild cellulitis without any visible ulceration. At home wound-care instructions: The patient will wash with antibacterial soap and water and then will apply gauze to stump site daily as needed. Apply triamcinolone to area at bottom once daily. Keep dressing clean and dry. Will try to offload stump site as much as possible. There is a possibility that if he develops ulcers or continues to have chronic cellulitis that a revision of the stump site may be necessary. Off-loading: The patient was instructed to avoid pressure and friction on the affected areas. Reposition every 2 hours at minimum. Avoid prolonged standing and/or dangling of legs. When seated, feet should be elevated at chest level. Frequent ambulation is encouraged. Diet: Patient encouraged to increase protein intake while taking caution to avoid high carbohydrate and/or sugar intake. Labs/cultures/imaging: Wound culture results reviewed. Will start Flagyl for treatment as topical Clindamycin was not effective. Culture repeated today. Follow-up: Return in 1 week for wound care follow up. Return sooner or report to the emergency room should symptoms worsen, or new symptoms arise. Note: [employer] speech recognition talent development manager software was used to create portions of this document. Sound-alike and misspelled words, as well as other talent development manager errors may be contained in the documentation.
--- NOTE | 2025-04-01 11:55 | WC ---
PHOTO 03/29/25 LEFT STUMP
[2025-04-05 08:34] VITALS: BP 142/74; PULSE 75; RESP 18; TEMP 36.6; BMI 50.4
--- NOTE | 2025-04-05 09:11 | PCM.WC.PN ---
History of Present Illness Date of Service: 04/05/25 Chief Complaint: cellulitis below the knee amputation site History of Wound: Isaias is a 24 yo gentleman who presents to the wound healing center today regarding drainage at the stump of his left BKA amputation site. He was referred by Dr. Du. He underwent BKA of his left leg 4 years ago due to an injury to his lower left leg. He reports that after initial surgery for BKA he developed infection and had second surgery to revise the stump approx. 1 month after initial amputation but has not had any infections since that time. For the last 2-4 months, he has noted increased pain, burning at the stump site and in the last month he has noted clear drainage which he thought was sweat and about 2 weeks ago he noticed bloody drainage and odor. He saw his PCP on 02/08/25 and was prescribed Clindamycin and referred to wound center for treatment. He did not start antibiotic until Tuesday but has noticed there is no further drainage today since he has been on the antibiotic. He does note that overnight he does seem to develop swelling to his stump area and after being in his prosthesis the swelling has decreased. He has an appointment on Tuesday with [facility] regarding liners for his prosthesis. He did have a compression stocking that he used postoperatively but they no longer provide compression. He is otherwise healthy and not on chronic medications. He denies any systemic symptoms of infection such as fever, chills, malaise. Subjective Subjective Isaias returns to the wound center today for evaluation and treatment of drainage at left BKA stump site. He continues to have drainage off and on. The weed science research technician that he saw from [employer] added a cushion at the site of where his pin is on his prosthesis to offload the stump site better. He also has a shrinking sleeve that he is using at bedtime. He denies increased erythema, fever or chills. He is tolerating Flagyl and his wound culture came back with multiple bacteria. There is still a tender area that is slightly fluctuant. Drainage is moderate to heavy. Objective Data Objective Data Vital Signs: Vital Signs Temp Pulse Resp BP O2 Del Method 98 F 75 18 142/74 H Room Air 04/05/25 08:34 04/05/25 08:34 04/05/25 08:34 04/05/25 08:34 03/29/25 08:05 Oxygen Delivery Method Room Air Weight: 178.262 kg Body Mass Index (BMI) 50.4 Lab / Micro Data Micro: Microbiology 03/29/25 08:50 Wound - Leg, Left Gram Stain - Final 03/29/25 08:50 Wound - Leg, Left Wound Culture - Preliminary Staphylococcus simulans Corynebacterium species Enterococcus faecalis Corynebacterium minutissimum Gram positive organism 03/29/25 08:50 Wound - Leg, Left Anaerobic Culture - Final Anaerobic cocci Prevotella oralis Physical Exam Const alert, oriented x3 and no apparent distress General Appearance: cooperative and comfortable HEENT normocephalic and head/scalp atraumatic Resp normal respiratory effort Effort and Inspection: able to speak in complete sentences Cardio regular rate and regular rhythm Skin Wounds: wounds noted Wound Narrative: as in clinical panel - left BKA amputation site with nodular appearance associated with chronic edema with approx. 1 cm x 1 cm fluctuant area that was incised and drained as below with a 15 blade and drained small amount of bloody purulent drainage Psych mental status grossly normal, thought process normal, cooperative and affect normal Debridement Note Debridement Note Wound debrided: left BKA stump Laterality: Left Type of Debridement: - (Incision and drainage performed over fluctuant area using 15 blade to make a cruciate incision and pocket explored without evidence of tunneling or extension into deeper tissue than subcutaneous tissue. Patient tolerated procedure well.) Anesthesia Used: 5% Lidocaine Gel and Cetacaine Depth: Down to and including healthy tissue and in the subcutaneous layer Percentage of wound debrided: 100 Tissue Removed: yellow slough, devitalized tissue, purulent drainage Severity: Fat Layer Exposed Amount of bleeding with debridement: Mild Bleeding Controlled with: Compression and gauze Patient tolerated procedure: Patient tolerated procedure well Post-Debridement Measurements and Additional Note: Post-Debridement Measurements/Treatment CHERYL - Nurse 1 - General Ulcer Assessment Start: 03/29/25 08:05 Freq: Status: Active Protocol: DARRIUS Activity Type Activity Date Activity User E-sign Co-sign Detail Recorded Client Recorded Date Recorded By Document 03/29/25 08:05 KW [id number] 03/29/25 08:17 KW Document 04/05/25 08:34 RB [id number] 04/05/25 08:36 RB 03/29/25 04/05/25 08:05 08:34 CHERYL - Today's Visit Information Type of service Follow-up Visit Follow-up Visit (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/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 (Physician/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 ) ) Arrival Mode Ambulatory Ambulatory Transfer Assistance None Patient Identification Verified (Name & Yes Yes ) Patient Requires Transmission-Based No Precautions Height and Weight Body Mass Index (BMI) 50.4 50.4 BMI Classification Obese Obese Vital Signs Temperature (97.8 F-99.1 F) 97.7 F L 98 F Temperature Source Temporal Temporal Pulse Rate (60-100) 72 75 Pulse Location Monitor Monitor Respiratory Rate (12-18) 16 18 Respiratory rate source Observation Observation Oxygen Delivery Method Room Air Blood Pressure (90/60-120/80) 149/80 H 142/74 H Blood Pressure Mean (mm Hg) 103 96 Source Monitor Monitor Position Semi-Fowlers Sitting Blood Pressure Location Right Arm Left Arm History Since Last Visit- (Skip if this is Patient's initial visit) Have you changed medications since your No No last visit? Any new allergies or adverse reactions No No Had a fall/change in ADL's that may No No increase risk of falls Signs or symptoms of abuse and/or No No neglect since last visit Have you been in the hospital since your No No last visit? Has dressing in place as prescribed Yes Yes Has compression in place as prescribed Yes Yes Has offloadiing in place as prescribed N/A N/A Experienced any changes in pain level or No No management Left Footwear Regular Shoe Right Footwear Regular Shoe Pain Scale: 0-10 Numeric Is Patient Pain Free? Yes No L stump -Description Aching -Intensity 5 -Duration (hours) Acute -Pain Behavior Irritability -Pain Aggravating Factors Exercise/ Activity -Alleviating Factors/Interventions None - Nurse 1 - General Ulcer Measurement Start: 03/29/25 08:05 Freq: Status: Active Protocol: Activity Type Activity Date Activity User E-sign Co-sign Detail Recorded Client Recorded Date Recorded By Document 03/29/25 08:05 KW [id number] 03/29/25 08:17 KW Document 04/05/25 08:34 RB [id number] 04/05/25 08:36 RB 03/29/25 04/05/25 08:05 08:34 Wound Center Nurse 1 #1 LT STUMP -Combined with other wound No -Current Size (cm) - Length 0.1 0.1 -Current Size (cm) - Width 0.1 0.1 -Current Size (cm) - Depth 0 0.1 -Total Square Cm 0.01 0.01 -Photo Taken Yes -Tunneling No -Undermining/Tunneling No -Circular Undermining No -Exudate Amt Medium Large -Exudate Type Serosanguineous Serosanguineous -Wound Margin Indistinct, Non Indistinct, Non -Visible -Visible -Granulation Amt Large (67-100%) Large (67-100%) -Granulation Quality Red Commodore,Red -Slough/Fibrin Yes -Necrosis Amt Small (1-33%) -Necrotic Tissue Type Adherent Slough -Structure Exposed Fat Layer Exposed -Texture (Luz Marina-wound Skin Appearance) Assessed Assessed, Localized Edema -Moisture (Luz Marina-wound Skin Appearance) Assessed Assessed -Color (Luz Marina-wound Skin Appearance) Assessed, Erythema Erythema -Temperature (Luz Marina-wound Skin No Abnormality No Abnormality Appearance) (Pt Warm) (Pt Warm) -Tenderness on Palpation (Luz Marina-wound No No Skin Appearance) -Ulcer Cleansing Rinsed/ Wound Cleanser Irrigated with Saline -Foul Odor after Cleansing No No WC - Nurse 2 - General Ulcer CM Notes Start: 03/29/25 08:05 Freq: Status: Active Protocol: Activity Type Activity Date Activity User E-sign Co-sign Detail Recorded Client Recorded Date Recorded By Document 03/29/25 08:43 [id number] 03/29/25 08:51 Document 04/05/25 08:48 [id number] 04/05/25 09:00 03/29/25 04/05/25 08:43 08:48 Wound Center Nurse 2 #1 LT STUMP -Time 08:44 08:48 -Correct Patient Yes Yes -Correct Side, Site, Position Yes Yes -Correct Procedure No -Procedure Performed No -Type of Procedure Incision & Drainage -Post Debridement (cm) - Length 0.1 0.1 -Post Debridement (cm) - Width 0.1 0.1 -Post Debridement (cm) - Depth 0.1 0.1 -Total Square (Post) (cm) 0.01 0.01 -Tunneling No -Undermining/Tunneling No -Circular Undermining No -Wound/Ulcer Outcome Not Healed -Ulcer Cleansing Rinsed/ Irrigated with Saline -Foul Odor after Cleansing No -Bioengineered Tissue No -Bleeding Controlled with NA Pain Scale: 0-10 Numeric Is Patient Pain Free? Yes Yes - Nurse 3 - General Ulcer D/C NN Start: 03/29/25 08:05 Freq: Status: Active Protocol: Activity Type Activity Date Activity User E-sign Co-sign Detail Recorded Client Recorded Date Recorded By Document 03/29/25 08:55 [id number] 03/29/25 08:55 Document 04/05/25 09:00 [id number] 04/05/25 09:01 03/29/25 04/05/25 08:55 09:00 Wound Care Center Nurse 3 #1 LT STUMP -Ulcer Cleansing Not Cleansed Not Cleansed -Foul Odor after Cleansing No No -Primary Dressing Applied Silicone Border Foam AG 3.6x4 -Primary Dressing Covered/Secured with Dry Gauze -Silicone Border Foam AG 3.6x4 1 -Silicone Border Foam 4x4 0 Pain Scale: 0-10 Numeric Is Patient Pain Free? Yes Yes - Visit Discharge Discharge Condition Stable Stable Ambulatory Status Ambulatory Ambulatory Transportation Private Auto Private Auto Clinical Summary of Care Provided Yes Assessment/Plan Assessment/Plan (1) Status post below-knee amputation of left lower extremity: CODE(S): Z89.512 - Acquired absence of left leg below knee (2) Complication of amputation stump of left lower extremity: CODE(S): T87.9 - Unspecified complications of amputation stump (3) Body mass index (BMI) of 40.0 to 44.9 in adult: CODE(S): Z68.41 - Body mass index [BMI] 40.0-44.9, adult (4) Lymphedema: CODE(S): I89.0 - Lymphedema, not elsewhere classified (5) Cellulitis and abscess of left lower extremity: CODE(S): L03.116 - Cellulitis of left lower limb; L02.416 - Cutaneous abscess of left lower limb (6) Complete traumatic amputation at level between knee and ankle, left lower leg, sequela: CODE(S): S88.112S - Complete traumatic amputation at level between knee and ankle, left lower leg, sequela PLAN: Plan Left BKA stump evaluated today revealing chronic skin changes of lymphedema and possibly pressure with nodular appearance and mild cellulitis without any visible ulceration. At home wound-care instructions: The patient will wash with antibacterial soap and water and then will apply gauze to stump site daily as needed. Keep dressing clean and dry. Will try to offload stump site as much as possible. There is a possibility that if he develops ulcers or continues to have chronic cellulitis that a revision of the stump site may be necessary. Off-loading: The patient was instructed to avoid pressure and friction on the affected areas. Reposition every 2 hours at minimum. Avoid prolonged standing and/or dangling of legs. When seated, feet should be elevated at chest level. Frequent ambulation is encouraged. Diet: Patient encouraged to increase protein intake while taking caution to avoid high carbohydrate and/or sugar intake. Labs/cultures/imaging: Wound culture results reviewed. Complete Flagyl and Augmentin started to treat bacteria on aerobic culture results. Follow-up: Return in 1 week for wound care follow up. Return sooner or report to the emergency room should symptoms worsen, or new symptoms arise. Note: [employer] speech recognition access clinician software was used to create portions of this document. Sound-alike and misspelled words, as well as other access clinician errors may be contained in the documentation.
[2025-04-12 08:37] VITALS: BP 140/78; PULSE 70; RESP 18; TEMP 36; BMI 50.4
--- NOTE | 2025-04-12 13:42 | PN.PCM_ITS ---
History of Present Illness Date of Service: 04/12/25 Chief Complaint: cellulitis below the knee amputation site History of Wound: Isaias is a 24 yo gentleman who presents to the wound healing center today regarding drainage at the stump of his left BKA amputation site. He was referred by Dr. Du. He underwent BKA of his left leg 4 years ago due to an injury to his lower left leg. He reports that after initial surgery for BKA he developed infection and had second surgery to revise the stump approx. 1 month after initial amputation but has not had any infections since that time. For the last 2-4 months, he has noted increased pain, burning at the stump site and in the last month he has noted clear drainage which he thought was sweat and about 2 weeks ago he noticed bloody drainage and odor. He saw his PCP on 02/08/25 and was prescribed Clindamycin and referred to wound center for treatment. He did not start antibiotic until Tuesday but has noticed there is no further drainage today since he has been on the antibiotic. He does note that overnight he does seem to develop swelling to his stump area and after being in his prosthesis the swelling has decreased. He has an appointment on Tuesday with [employer] regarding liners for his prosthesis. He did have a compression stocking that he used postoperatively but they no longer provide compression. He is otherwise healthy and not on chronic medications. He denies any systemic symptoms of infection such as fever, chills, malaise. Subjective Subjective Isaias returns to the wound center today for evaluation and treatment of drainage at left BKA stump site. He continues to have drainage off and on. The automatic equipment technician that he saw from [employer] added a cushion at the site of where his pin is on his prosthesis to offload the stump site better. He also has a s hrinking sleeve that he is using at bedtime. He denies increased erythema, fever or chills. He is tolerating Augmentin. and notes drainage has been less this week. Drainage is moderate to heavy. Objective Data Objective Data Vital Signs: Vital Signs Temp Pulse Resp BP O2 Del Method 96.8 F L 70 18 140/78 H Room Air 04/12/25 08:37 04/12/25 08:37 04/12/25 08:37 04/12/25 08:37 04/12/25 08:37 Oxygen Delivery Method Room Air Weight: 178.262 kg Body Mass Index (BMI) 50.4 Lab / Micro Data Micro: Microbiology 03/29/25 08:50 Wound - Leg, Left Gram Stain - Final 03/29/25 08:50 Wound - Leg, Left Wound Culture - Final Staphylococcus simulans Corynebacterium species Enterococcus faecalis Corynebacterium minutissimum Alloiococcus otitis 03/29/25 08:50 Wound - Leg, Left Anaerobic Culture - Final Anaerobic cocci Prevotella oralis Physical Exam Const alert, oriented x3 and no apparent distress General Appearance: cooperative and comfortable HEENT normocephalic and head/scalp atraumatic Resp normal respiratory effort Effort and Inspection: able to speak in complete sentences Cardio regular rate and regular rhythm Skin Wounds: wounds noted Wound Narrative: as in clinical panel - left BKA amputation site with nodular appearance associated with chronic edema with 1.0 cm shallow area that is left from last week's I and D Psych mental status grossly normal, thought process normal, cooperative and affect normal Debridement Note Debridement Note Post-Debridement Measurements and Additional Note: Post-Debridement Measurements/Treatment - Nurse 1 - General Ulcer Assessment Start: 03/29/25 08:05 Freq: Status: Active Protocol: DONY Activity Type Activity Date Activity User E-sign Co-sign Detail Recorded Client Recorded Date Recorded By Document 03/29/25 08:05 KW [id number] 03/29/25 08:17 KW Document 04/05/25 08:34 RB [id number] 04/05/25 08:36 RB Document 04/12/25 08:37 KW [id number] 04/12/25 08:42 KW 03/29/25 04/05/25 04/12/25 08:05 08:34 08:37 - Today's Visit Information Type of service Follow-up Visit Follow-up Visit Follow-up Visit (Physician/PRIMARY TEACHING ASSISTANT (Physician/PRIMARY TEACHING ASSISTANT (Physician/PRIMARY TEACHING ASSISTANT ) ) ) Arrival Mode Ambulatory Ambulatory Ambulatory Transfer Assistance None Patient Identification Verified (Name & Yes Yes Yes ) Patient Requires Transmission-Based No Precautions Height and Weight Body Mass Index (BMI) 50.4 50.4 50.4 BMI Classification Obese Obese Obese Vital Signs Temperature (97.8 F-99.1 F) 97.7 F L 98 F 96.8 F L Temperature Source Temporal Temporal Temporal Pulse Rate (60-100) 72 75 70 Pulse Location Monitor Monitor Monitor Respiratory Rate (12-18) 16 18 18 Respiratory rate source Observation Observation Observation Oxygen Delivery Method Room Air Room Air Blood Pressure (90/60-120/80) 149/80 H 142/74 H 140/78 H Blood Pressure Mean (mm Hg) 103 96 98 Source Monitor Monitor Monitor Position Semi-Fowlers Sitting Sitting Blood Pressure Location Right Arm Left Arm Left Arm History Since Last Visit- (Skip if this is Patient's initial visit) Have you changed medications since your No No No last visit? Any new allergies or adverse reactions No No No Had a fall/change in ADL's that may No No No increase risk of falls Signs or symptoms of abuse and/or No No No neglect since last visit Have you been in the hospital since your No No No last visit? Has dressing in place as prescribed Yes Yes Yes Has compression in place as prescribed Yes Yes Yes Has offloadiing in place as prescribed N/A N/A N/A Experienced any changes in pain level or No No No management Left Footwear Regular Shoe Regular Shoe Right Footwear Regular Shoe Regular Shoe Pain Scale: 0-10 Numeric Is Patient Pain Free? Yes No Yes L stump -Description Aching -Intensity 5 -Duration (hours) Acute -Pain Behavior Irritability -Pain Aggravating Factors Exercise/ Activity -Alleviating Factors/Interventions None WC - Nurse 1 - General Ulcer Measurement Start: 03/29/25 08:05 Freq: Status: Active Protocol: Activity Type Activity Date Activity User E-sign Co-sign Detail Recorded Client Recorded Date Recorded By Document 03/29/25 08:05 KW [id number] 03/29/25 08:17 KW Document 04/05/25 08:34 RB [id number] 04/05/25 08:36 RB Document 04/12/25 08:37 KW [id number] 04/12/25 08:42 KW 03/29/25 04/05/25 04/12/25 08:05 08:34 08:37 Wound Center Nurse 1 #1 LT STUMP -Combined with other wound No -Current Size (cm) - Length 0.1 0.1 0.1 -Current Size (cm) - Width 0.1 0.1 0.1 -Current Size (cm) - Depth 0 0.1 0 -Total Square Cm 0.01 0.01 0.01 -Photo Taken Yes -Tunneling No -Undermining/Tunneling No -Circular Undermining No -Exudate Amt Medium Large Small -Exudate Type Serosanguineous Serosanguineous Serosanguineous -Wound Margin Indistinct, Non Indistinct, Non Distinct, -Visible -Visible Outline Attached -Granulation Amt Large (67-100%) Large (67-100%) -Granulation Quality [place],Red -Slough/Fibrin Yes -Necrosis Amt Small (1-33%) -Necrotic Tissue Type Adherent Slough -Structure Exposed Fat Layer Exposed -Texture (Luz Marina-wound Skin Appearance) Assessed Assessed, Assessed Localized Edema -Moisture (Luz Marina-wound Skin Appearance) Assessed Assessed Assessed -Color (Luz Marina-wound Skin Appearance) Assessed, Erythema Assessed, Erythema Erythema -Temperature (Luz Marina-wound Skin No Abnormality No Abnormality No Abnormality Appearance) (Pt Warm) (Pt Warm) (Pt Warm) -Tenderness on Palpation (Luz Marina-wound No No No Skin Appearance) -Ulcer Cleansing Rinsed/ Wound Cleanser Rinsed/ Irrigated with Irrigated with Saline Saline -Foul Odor after Cleansing No No -Anesthetic Used 5% Lidocaine Gel WC - Nurse 2 - General Ulcer CM Notes Start: 03/29/25 08:05 Freq: Status: Active Protocol: Activity Type Activity Date Activity User E-sign Co-sign Detail Recorded Client Recorded Date Recorded By Document 03/29/25 08:43 GM [id number] 03/29/25 08:51 GM Document 04/05/25 08:48 GM [id number] 04/05/25 09:00 GM Edit Result 04/05/25 08:48 GM (1) [id number] 04/05/25 10:46 GM Document 04/12/25 08:53 GM [id number] 04/12/25 09:01 GM (1) #1 LT STUMP - Tunneling => No - Undermining/Tunneling => No - Circular Undermining => No - Wound/Ulcer Outcome => Not Healed - Ulcer Cleansing => Rinsed/Irrigated => with Saline - Foul Odor after Cleansing => No - Bioengineered Tissue => No - Bleeding Controlled with => Pressure - Treatment Response => Procedure => Tolerated Well - Offloading => No 03/29/25 04/05/25 04/12/25 08:43 08:48 08:53 Wound Center Nurse 2 #1 LT STUMP -Time 08:44 08:48 08:53 -Correct Patient Yes Yes Yes -Correct Side, Site, Position Yes Yes Yes -Correct Procedure No Yes -Procedure Performed No Yes -Type of Procedure Incision & Debridement Drainage -Clinical Debridement Subcutaneous -Tissue Removed Subcutaneous -Post Debridement (cm) - Length 0.1 0.1 0.5 -Post Debridement (cm) - Width 0.1 0.1 0.1 -Post Debridement (cm) - Depth 0.1 0.1 0.2 -Total Square (Post) (cm) 0.01 0.01 0.05 -Area of Debridement (cm) - Length 0.5 -Area of Debridement (cm) - Width 0.1 -Total Square (Area) (cm) 0.05 -Tunneling No No No -Undermining/Tunneling No No No -Circular Undermining No No No -Wound/Ulcer Outcome Not Healed Not Healed Not Healed -Ulcer Cleansing Rinsed/ Rinsed/ Rinsed/ Irrigated with Irrigated with Irrigated with Saline Saline Saline -Foul Odor after Cleansing No No No -Bioengineered Tissue No No No -Bleeding Controlled with NA Pressure Pressure -Treatment Response Procedure Procedure Tolerated Well Tolerated Well -Offloading No No -Debridement - Subq, 1st 20sq cm Yes Pain Scale: 0-10 Numeric Is Patient Pain Free? Yes Yes Yes - Nurse 3 - General Ulcer D/C NN Start: 03/29/25 08:05 Freq: Status: Active Protocol: Activity Type Activity Date Activity User E-sign Co-sign Detail Recorded Client Recorded Date Recorded By Document 03/29/25 08:55 [id number] 03/29/25 08:55 Document 04/05/25 09:00 [id number] 04/05/25 09:01 Document 04/12/25 09:06 KW [id number] 04/12/25 09:06 KW 03/29/25 04/05/25 04/12/25 08:55 09:00 09:06 Wound Care Center Nurse 3 #1 LT STUMP -Ulcer Cleansing Not Cleansed Not Cleansed -Foul Odor after Cleansing No No -Primary Dressing Applied Silicone Border Foam AG 3.6x4 -Primary Dressing Covered/Secured with Dry Gauze Dry Gauze -Silicone Border Foam AG 3.6x4 1 -Silicone Border Foam 4x4 0 Pain Scale: 0-10 Numeric Is Patient Pain Free? Yes Yes Yes WC - Visit Discharge Discharge Condition Stable Stable Stable Ambulatory Status Ambulatory Ambulatory Ambulatory Transportation Private Auto Private Auto Private Auto Medication Reconcilliation completed & No provided to patient/care provider Clinical Summary of Care Provided Yes Yes Assessment/Plan Assessment/Plan (1) Status post below-knee amputation of left lower extremity: CODE(S): Z89.512 - Acquired absence of left leg below knee (2) Complication of amputation stump of left lower extremity: CODE(S): T87.9 - Unspecified complications of amputation stump (3) Body mass index (BMI) of 40.0 to 44.9 in adult: CODE(S): Z68.41 - Body mass index [BMI] 40.0-44.9, adult (4) Lymphedema: CODE(S): I89.0 - Lymphedema, not elsewhere classified (5) Cellulitis and abscess of left lower extremity: CODE(S): L03.116 - Cellulitis of left lower limb; L02.416 - Cutaneous abscess of left lower limb (6) Complete traumatic amputation at level between knee and ankle, left lower leg, sequela: CODE(S): S88.112S - Complete traumatic amputation at level between knee and ankle, left lower leg, sequela PLAN: Plan Left BKA stump evaluated today revealing chronic skin changes of lymphedema and possibly pressure with nodular appearance and mild cellulitis without any visible ulceration. At home wound-care instructions: The patient will wash with antibacterial soap and water and then will apply gauze to stump site daily as needed. Keep dressing clean and dry. Will try to offload stump site as much as possible. There is a possibility that if he develops ulcers or continues to have chronic cellulitis that a revision of the stump site may be necessary. Off-loading: The patient was instructed to avoid pressure and friction on the affected areas. Reposition every 2 hours at minimum. Avoid prolonged standing and/or dangling of legs. When seated, feet should be elevated at chest level. Frequent ambulation is encouraged. Diet: Patient encouraged to increase protein intake while taking caution to avoid high carbohydrate and/or sugar intake. Labs/cultures/imaging: Wound culture results reviewed. Completed Flagyl. Augmentin nearly completed. Follow-up: Return in 1 week for wound care follow up. Return sooner or report to the emergency room should symptoms worsen, or new symptoms arise. Note: [employer] speech recognition information clerk software was used to create portions of this document. Sound-alike and misspelled words, as well as other information clerk errors may be contained in the documentation.
== END 2025-04-20 23:59 | disposition home or self-care (01) ==
LOC: WC 08:30
PROVIDERS: PCP Family Medicine; Referring Provider Family Medicine; Visit Provider Family Medicine
DX: T87.44 Infection of amputation stump, left lower extremity (principal); Z89.512 Acquired absence of left leg below knee; Y83.5 Amputation of limb(s) as the cause of abnormal reaction of the patient, or of later complication, without mention of misadventure at the time of the procedure; I89.0 Lymphedema, not elsewhere classified; Z79.899 Other long term (current) drug therapy
CPT/HCPCS: 10060; 11042; 87070; 87075; 87077; 87186; 87205; 99213; G0463

== ENCOUNTER 2025-05-03 08:38 | Outpatient (RCR) | payer MEDICAID, SELFPAY ==
[2025-04-21 00:13] VITALS: BP 140/78; PULSE 70; RESP 18; TEMP 36; BMI 50.4
[2025-05-03 08:43] VITALS: BP 140/77; PULSE 66; RESP 18; TEMP 36.1; BMI 50.4
--- NOTE | 2025-05-03 14:03 | PN.PCM_ITS ---
History of Present Illness Date of Service: 05/03/25 Chief Complaint: cellulitis below the knee amputation site History of Wound: Isaias is a 24 yo gentleman who presents to the wound healing center today regarding drainage at the stump of his left BKA amputation site. He was referred by Dr. Du. He underwent BKA of his left leg 4 years ago due to an injury to his lower left leg. He reports that after initial surgery for BKA he developed infection and had second surgery to revise the stump approx. 1 month after initial amputation but has not had any infections since that time. For the last 2-4 months, he has noted increased pain, burning at the stump site and in the last month he has noted clear drainage which he thought was sweat and about 2 weeks ago he noticed bloody drainage and odor. He saw his PCP on 02/08/25 and was prescribed Clindamycin and referred to wound center for treatment. He did not start antibiotic until Tuesday but has noticed there is no further drainage today since he has been on the antibiotic. He does note that overnight he does seem to develop swelling to his stump area and after being in his prosthesis the swelling has decreased. He has an appointment on Tuesday with [employer] regarding liners for his prosthesis. He did have a compression stocking that he used postoperatively but they no longer provide compression. He is otherwise healthy and not on chronic medications. He denies any systemic symptoms of infection such as fever, chills, malaise. Subjective Subjective Isaias returns to the wound center today for evaluation and treatment of drainage at left BKA stump site. He continues to have drainage off and on but it is less frequent. Erythema has decreased. The quality assurance qa lab technician that he saw from [email or web address] added a cushion at the site of where his pin is on his prosthesis t o offload the stump site better. He also has a shrinking sleeve that he is using at bedtime. He denies increased erythema, fever or chills. Objective Data Objective Data Vital Signs: Vital Signs Temp Pulse Resp BP O2 Del Method 96.9 F L 66 18 140/77 H Room Air 05/03/25 08:43 05/03/25 08:43 05/03/25 08:43 05/03/25 08:43 05/03/25 08:43 Oxygen Delivery Method Room Air Weight: 178.262 kg Body Mass Index (BMI) 50.4 Physical Exam Const alert, oriented x3 and no apparent distress General Appearance: cooperative and comfortable HEENT normocephalic and head/scalp atraumatic Resp normal respiratory effort Effort and Inspection: able to speak in complete sentences Cardio regular rate and regular rhythm Skin Wounds: wounds noted Wound Narrative: as in clinical panel - left BKA amputation site with nodular appearance associated with chronic edema, no ulcers or abscess noted Psych mental status grossly normal, thought process normal, cooperative and affect normal Debridement Note Debridement Note Wound debrided: left BKA stump Laterality: Left No debridement was completed: No debridement was completed today Post-Debridement Measurements and Additional Note: Post-Debridement Measurements/Treatment CHERYL - Nurse 1 - General Ulcer Assessment Start: 05/03/25 08:43 Freq: Status: Active Protocol: DARRIUS Activity Type Activity Date Activity User E-sign Co-sign Detail Recorded Client Recorded Date Recorded By Document 05/03/25 08:43 TIFF [id number] 05/03/25 08:47 TIFF 05/03/25 08:43 WC - Today's Visit Information Type of service Follow-up Visit (Physician/BUSINESS PROCESS ANALYST ) Arrival Mode Ambulatory Patient Identification Verified (Name & Yes ) Height and Weight Body Mass Index (BMI) 50.4 BMI Classification Obese Vital Signs Temperature (97.8 F-99.1 F) 96.9 F L Temperature Source Temporal Pulse Rate (60-100) 66 Pulse Location Monitor Respiratory Rate (12-18) 18 Respiratory rate source Observation Oxygen Delivery Method Room Air Blood Pressure (90/60-120/80) 140/77 H Blood Pressure Mean (mm Hg) 98 Source Monitor Position Semi-Fowlers Blood Pressure Location Right Forearm History Since Last Visit- (Skip if this is Patient's initial visit) Have you changed medications since your No last visit? Any new allergies or adverse reactions No Had a fall/change in ADL's that may No increase risk of falls Signs or symptoms of abuse and/or No neglect since last visit Have you been in the hospital since your No last visit? Has dressing in place as prescribed Yes Has compression in place as prescribed N/A Has offloadiing in place as prescribed N/A Experienced any changes in pain level or No management Left Footwear Regular Shoe Right Footwear Regular Shoe Pain Scale: 0-10 Numeric Is Patient Pain Free? Yes - Nurse 1 - General Ulcer Measurement Start: 05/03/25 08:43 Freq: Status: Active Protocol: Activity Type Activity Date Activity User E-sign Co-sign Detail Recorded Client Recorded Date Recorded By Document 05/03/25 08:43 [id number] 05/03/25 08:47 05/03/25 08:43 Wound Center Nurse 1 #1 LT STUMP -Current Size (cm) - Length 0.1 -Current Size (cm) - Width 0.1 -Current Size (cm) - Depth 0.1 -Total Square Cm 0.01 -Date of Last Picture (Recall this 05/03/25 field) -Exudate Amt Small -Exudate Type Serosanguineous -Wound Margin Indistinct, Non -Visible -Texture (Luz Marina-wound Skin Appearance) Assessed -Moisture (Luz Marina-wound Skin Appearance) Assessed -Color (Luz Marina-wound Skin Appearance) Assessed, Erythema -Temperature (Luz Marina-wound Skin No Abnormality Appearance) (Pt Warm) -Tenderness on Palpation (Luz Marina-wound No Skin Appearance) -Ulcer Cleansing Soap and Water WC - Nurse 2 - General Ulcer CM Notes Start: 05/03/25 08:43 Freq: Status: Active Protocol: Activity Type Activity Date Activity User E-sign Co-sign Detail Recorded Client Recorded Date Recorded By Document 05/03/25 08:55 [id number] 05/03/25 08:59 05/03/25 08:55 Wound Center Nurse 2 -Time 08:55 -Correct Patient Yes -Correct Side, Site, Position Yes -Correct Procedure No -Procedure Performed No -Tunneling No -Undermining/Tunneling No -Circular Undermining No -Wound/Ulcer Outcome Healed- Epithelialized -Ulcer Cleansing Not Cleansed -Foul Odor after Cleansing No -Bioengineered Tissue No -Offloading No Pain Scale: 0-10 Numeric Is Patient Pain Free? Yes WC - Nurse 3 - General Ulcer D/C NN Start: 05/03/25 08:43 Freq: Status: Active Protocol: Activity Type Activity Date Activity User E-sign Co-sign Detail Recorded Client Recorded Date Recorded By Document 05/03/25 08:59 [id number] 05/03/25 09:00 05/03/25 08:59 Wound Care Center Nurse 3 #1 LT STUMP -Primary Dressing Covered/Secured with Dry Gauze, Secured with Tape Pain Scale: 0-10 Numeric Is Patient Pain Free? Yes WC - Visit Discharge Discharge Condition Stable Ambulatory Status Ambulatory Transportation Private Auto Assessment/Plan Assessment/Plan (1) Status post below-knee amputation of left lower extremity: CODE(S): Z89.512 - Acquired absence of left leg below knee (2) Complication of amputation stump of left lower extremity: CODE(S): T87.9 - Unspecified complications of amputation stump (3) Body mass index (BMI) of 40.0 to 44.9 in adult: CODE(S): Z68.41 - Body mass index [BMI] 40.0-44.9, adult (4) Lymphedema: CODE(S): I89.0 - Lymphedema, not elsewhere classified (5) Cellulitis and abscess of left lower extremity: CODE(S): L03.116 - Cellulitis of left lower limb; L02.416 - Cutaneous abscess of left lower limb (6) Complete traumatic amputation at level between knee and ankle, left lower leg, sequela: CODE(S): S88.112S - Complete traumatic amputation at level between knee and ankle, left lower leg, sequela PLAN: Plan Left BKA stump evaluated today revealing chronic skin changes of lymphedema and possibly pressure with nodular appearance and mild cellulitis without any visible ulceration. At home wound-care instructions: The patient will wash with antibacterial soap and water and then will apply clindamycin or iodine to area and then cover with gauze to stump site daily as needed. Keep dressing clean and dry. Will try to offload stump site as much as possible. There is a possibility that if he develops ulcers or continues to have chronic cellulitis that a revision of the stump site may be necessary. Off-loading: The patient was instructed to avoid pressure and friction on the affected areas. Reposition every 2 hours at minimum. Avoid prolonged standing and/or dangling of legs. When seated, feet should be elevated at chest level. Frequent ambulation is encouraged. Diet: Patient encouraged to increase protein intake while taking caution to avoid high carbohydrate and/or sugar intake. Labs/cultures/imaging: Completed Flagyl. Augmentin completed. Follow-up: Return in 2-4 weeks for wound care follow up. Return sooner or report to the emergency room should symptoms worsen, or new symptoms arise. Note: [employer] speech recognition restaurant cook software was used to create portions of this document. Sound-alike and misspelled words, as well as other restaurant cook errors may be contained in the documentation.
--- NOTE | 2025-05-06 08:39 | WC ---
PHOTO 05/03/25 LEFT STUMP
== END 2025-05-20 23:59 | disposition home or self-care (01) ==
LOC: WC 08:38
PROVIDERS: PCP Family Medicine; Referring Provider Family Medicine; Visit Provider Family Medicine
DX: T87.44 Infection of amputation stump, left lower extremity (principal); Z89.512 Acquired absence of left leg below knee; L03.116 Cellulitis of left lower limb; Y83.5 Amputation of limb(s) as the cause of abnormal reaction of the patient, or of later complication, without mention of misadventure at the time of the procedure; I89.0 Lymphedema, not elsewhere classified
CPT/HCPCS: 99213; G0463

== ENCOUNTER 2025-05-31 08:31 | Outpatient (RCR) | payer MEDICAID, SELFPAY ==
[2025-05-31 08:51] VITALS: BP 136/88; PULSE 87; RESP 16; TEMP 36.4
--- NOTE | 2025-05-31 13:00 | WC ---
PHOTO 05/31/25 LEFT STUMP
== END 2025-06-20 23:59 | disposition home or self-care (01) ==
LOC: WC 08:31
PROVIDERS: PCP Family Medicine; Referring Provider Family Medicine; Visit Provider Family Medicine
DX: Z09 Encounter for follow-up examination after completed treatment for conditions other than malignant neoplasm (principal)

== ENCOUNTER → 2025-10-01 | Outpatient (CLI) | payer MEDICAID, SELFPAY ==
[2025-10-01 12:27] LABS: Hematocrit 46.6 % (40-54); Hemoglobin 14.9 g/dL (13.0-16.5); Mean Corp Hgb Conc 32.0 g/dL (32-36); Mean Corpuscular Volume 80.6 fL (80-94); Mean Platelet Vol. 10.1 fl (6.2-12.0); Platelet Count 310 K/mm3 (150-450); RBC Distribution Width CV 12.7 % (11.6-14.6); RBC Distribution Width SD 36.6 fl (35.1-43.9); Red Blood Count 5.78 M/mm3 (4.6-6.2); White Blood Count 8.2 K/mm3 (4.4-11.0)
[2025-10-01 13:04] LABS: AST(SGOT) 28 U/L (<=37); Alanine Aminotransfer ALT/SGPT 39 U/L (<=46); Albumin, Serum 4.4 g/dL (3.5-5.0); Alkaline Phosphatase 63 U/L (40-129); Anion Gap 10 (5-15); BUN 9 mg/dL (4-19); BUN/Creat Ratio 10.1 RATIO (10-20); Calcium,Total 9.9 mg/dL (7.6-11.0); Carbon Dioxide 27.4 mmol/L (21.0-32.0); Chloride 105 mmol/L (98-108); Cholesterol 121 mg/dL (<=190); Globulin 3.4 g/dL (2.2-4.2); Glucose 108 mg/dL (70-99); Low Density Lipoprotein Calc. 71 mg/dL; Potassium 4.3 mmol/L (3.3-5.1); Triglycerides 53 mg/dL; Very Low Density Lipoprotein 11 mg/dL (5-40); cholesterol:hdl ratio screen 3.18
== END | disposition home or self-care (01) ==
LOC: MTLAB 09:59
PROVIDERS: PCP Family Medicine; Referring Provider Family Medicine; Visit Provider Family Medicine
DX: Z13.1 Encounter for screening for diabetes mellitus (principal); S88.119A Complete traumatic amputation at level between knee and ankle, unspecified lower leg, initial encounter; Z13.220 Encounter for screening for lipoid disorders
CPT/HCPCS: 36415; 80053; 80061; 85027

== ENCOUNTER → 2025-10-16 | Outpatient (CLI) | payer MEDICAID, SELFPAY ==
[2025-10-16 12:30] LABS: Prothrombin Time (Protime)PT. 13.2 SECONDS (11.7-14.9)
[2025-10-16 13:10] LABS: Albumin, Serum 4.0 g/dL (3.5-5.0); CRP 12.70 mg/L (0.0-3.0)
[2025-10-17 09:08] LABS: Prealbumin 21 mg/dL (14-35)
== END | disposition home or self-care (01) ==
LOC: MFPLAB 09:47
PROVIDERS: PCP Family Medicine; Visit Provider Family Medicine
DX: Z01.818 Encounter for other preprocedural examination (principal)
CPT/HCPCS: 36415; 82040; 83036; 84134; 85610; 85652; 86140